=== PATIENT | male | born 1940 | race Caucasian/White ===

== ENCOUNTER 2019-12-15 16:08 | Inpatient (IN) ==
[2019-12-15 17:31] LABS: Hematocrit (blood only) 31.3 % (42-52); Hemoglobin 10.8 g/dL (14.0-18.0); Immature Granulocytes # (auto) 0.02 K/uL (0.00-0.02); Immature Granulocytes % (auto) 0.3 %; Lymphocytes # (auto) 0.72 K/uL (1.2-3.4); Lymphocytes % (auto) 9.3 %; Mean Corpuscular Hgb Conc 34.5 g/dL (32-36); Mean Corpuscular Volume 92.6 fL (80-100); Mean Platelet Volume 11.2 fL (7.4-10.4); Monocytes # (auto) 0.51 K/uL (0.11-0.59); Monocytes % (auto) 6.6 %; Neutrophils # (auto) 6.48 K/uL (1.4-6.5); Neutrophils % (auto) 83.8 %; Platelet Count 155 K/uL (130-400); RDW Coefficient of Variation 14.9 % (11.5-14.5); RDW Standard Deviation 50.4 fL (36.4-46.3); Red Blood Count 3.38 M/uL (4.7-6.1); White Blood Count 7.73 K/uL (4.8-10.8)
[2019-12-15 18:07] LABS: Alanine Aminotransferase 33 U/L (12-78); Albumin Globulin Ratio 0.5 (0.9-2); Albumin Level 2.5 gm/dl (3.4-5.0); Alkaline Phosphatase 52 U/L (45-117); BUN Creatinine Ratio 11.8 (10-20); Bilirubin,Total 0.3 mg/dl (0.2-1); Blood Urea Nitrogen 108 mg/dl (7-18); C Reactive Protein 8.28 mg/dl (0-0.29); Calcium 7.4 mg/dl (8.5-10.1); Carbon Dioxide 20 mmol/L (21-32); Chloride 102 mmol/L (98-107); Creatine Kinase MB < 1.0 ng/ml (0.5-3.6); Creatinine Clr Calc Pharmacy 6.8 ml/min; Est GFR (African American) 5.7; Est GFR (Non-African American) 4.9; Ferritin 1311.5 ng/ml (8-388); Globulin 4.7 gm/dl (2.5-4.0); Glucose 138 mg/dl (70-99); Total Protein 7.2 gm/dl (6.4-8.2); Troponin I 0.015 ng/ml (0-0.045)
[2019-12-15 18:09] LABS: Partial Thromboplastin Ratio 1.8; Prothrombin Time 29.7 Seconds (9.0-12.0)
[2019-12-15 18:13] LABS: Potassium 3.5 mmol/L (3.5-5.1); Sodium 138 mmol/L (136-145)
[2019-12-15 18:16] LABS: Partial Thromboplastin Time 50.1 Seconds (21.0-31.0)
[2019-12-15 18:22] LABS: Aspartate Aminotransferase 35 U/L (15-37); Creatine Kinase 55 U/L (39-308); Magnesium 2.3 mg/dl (1.8-2.4)
[2019-12-15] MEDS ORDERED: CEFEPIME 2,000 MG/20 ML VIAL IV STA (18:33)
[2019-12-15] MEDS ORDERED: DEXAMETHASONE SOD INJ 10 MG/ML VIAL IV ONE (18:33)
[2019-12-15] MEDS ORDERED: ACETAMINOPHEN 1,000 MG/100 ML VIAL IV STA (18:33)
--- NOTE | 2019-12-15 18:59 | XRay Report ---
XR chest 1V portable HISTORY: SEPSIS COMPARISON: None. FINDINGS: There are scattered peripheral hazy airspace opacities seen within the lungs. This is best within the mid to lower lung zones. This is consistent with a pneumonia. The heart is mildly enlarged . No pleural effusions. No pneumothorax. IMPRESSION: Scattered peripheral airspace opacities consistent with pneumonia. This is likely due to the patient' s known coronavirus. ACT 112: Negative or not required by law. Electronically signed by: Girish Coronado M.D. 12/15/2019 6:58 PM
--- NOTE | 2019-12-15 18:59 | Emergency Department Note ---
History of Present Illness General Chief complaint: Shortness of Breath/Dyspnea Stated complaint: SOB, COVID + Time Seen by Provider: 12/15/19 16:43 Source: patient, family (daughter [phone]), EMS, RN notes reviewed and old records reviewed Mode of arrival: EMS Limitations: no limitations History of Present Illness Provider complaint: hypoxia, fever Onset (ago): week(s) 2 Location: chest Severity: moderate Current Pain Intensity: 0 Relieved By: + immobilization Exacerbated By: + movement Associated symptoms: + fever/chills, + loss of appetite, + shortness of breath and + weakness; no confusion, no chest pain, no headaches and no nausea/vomiting Treatments prior to arrival: other (dialysis) This is a 79-year-old male who had a recent complicated stay at [facility] after being diagnosed with coronavirus. The patient receives dialysis Friday. He was sent to dialysis today to [facility]. At dialysis the patient complained of feeling weak and being hypoxic. He has been on 6 L of oxygen since his Covid diagnosis. Upon arrival to the emergency department the patient is febrile and is requiring more oxygen at 6.5 L but otherwise has no complaints. He did not receive anything for the fever prior to coming to the emergency department. He reports movement makes his weakness much worse however immobilization and rest makes it better. Home Medications Home Medications Medication Instructions Recorded Confirmed Type albuterol sulfate 2 puff INHALATION Q4H PRN 12/15/19 12/15/19 History albuterol sulfate 2.5 mg INHALATION Q4H PRN 12/15/19 12/15/19 History aspirin 81 mg PO DAILY 12/15/19 12/15/19 History atorvastatin 80 mg PO QPM 12/15/19 12/15/19 History calcium acetate(phosphat bind) 667 mg PO TID 12/15/19 12/15/19 History clopidogrel 75 mg PO DAILY 12/15/19 12/15/19 History dexamethasone 6 mg PO DAILY 12/15/19 12/15/19 History ergocalciferol (vitamin D2) 50,000 unit PO MONTHLY 12/15/19 12/15/19 History famotidine 40 mg PO HS 12/15/19 12/15/19 History finasteride 5 mg PO DAILY 12/15/19 12/15/19 History fluticasone furoate-vilanterol 1 inh INHALATION DAILY 12/15/19 12/15/19 History [Breo Ellipta] icosapent ethyl [Vascepa] 2 g PO BID 12/15/19 12/15/19 History insulin aspart U-100 [Novolog 15 unit SUBCUT AC 12/15/19 12/15/19 History Flexpen U-100 Insulin] insulin glargine [Lantus Solostar 50 unit SUBCUT QDL 12/15/19 12/15/19 History U-100 Insulin] metoprolol succinate 25 mg PO DAILY 12/15/19 12/15/19 History nitroglycerin [Nitrostat] 0.4 mg SUBLINGUAL UD PRN 12/15/19 12/15/19 History olanzapine 2.5 mg PO DAILY 12/15/19 12/15/19 History tiotropium bromide [Spiriva with 1 cap INHALATION DAILY 12/15/19 12/15/19 History HandiHaler] torsemide 100 mg PO DAILY 12/15/19 12/15/19 History warfarin [Jantoven] 2.5 mg PO UD 12/15/19 12/15/19 History Allergies Allergy/AdvReac Type Severity Reaction Status Date / Time Unable to Assess Allergy Unverified 12/15/19 20:07 Past Med/Surg History Medical History AAA (abdominal aortic aneurysm) Anemia of chronic disease Aortic valve regurgitation Arteriovenous fistula for hemodialysis in place, primary Atherosclerotic heart disease of [place] coronary artery without angina pectoris BPH (benign prostatic hyperplasia) Calculus of kidney Chronic anticoagulation COPD (chronic obstructive pulmonary disease) Critical lower limb ischemia ESRD (end stage renal disease) on dialysis Essential hypertension GERD without esophagitis Grade I diastolic dysfunction History of community acquired pneumonia History of OK (myocardial infarction) History of tobacco abuse Mixed dyslipidemia Occlusion of femoral-popliteal bypass graft Peripheral arterial disease Type 2 diabetes mellitus Surgical History History of cardiac catheterization S/P femoral-popliteal bypass surgery Left - 2011. 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 Required: No Beliefs That Will Affect Care: None Current Living Situation: Alone Other Information That Helps Us Care for You: No Feels Safe at Home: Yes Assistive Devices: Oxygen - Continuous Review of Systems A total of 10 systems reviewed and were otherwise negative Physical Exam Vital Signs Vital Signs - 24 hr 12/15/19 16:18 12/15/19 16:23 12/15/19 16:56 Temperature 38.7 C H Temperature Source Oral Pulse Rate 100 H Pulse Rate [Apical] 100 H Respiratory Rate 24 26 H Respiratory Effort / Characteristics Labored Blood Pressure 176/84 H Blood Pressure [Right Arm] 160/74 H Blood Pressure Mean 114 Blood Pressure Mean [Right Arm] 102 Pulse Oximetry 99 100 Oxygen Delivery Method Nasal Cannula Nasal Cannula Nasal Cannula Oxygen Flow Rate 6 6 6 Sepsis Recent Fever Within 48 Hours Yes Sepsis New/Unexplained Change in Mental Status N/A Sepsis Action Taken by Nursing Physician Notified 12/15/19 17:05 12/15/19 17:31 12/15/19 18:52 Temperature Temperature Source Pulse Rate Pulse Rate [Apical] 98 H Respiratory Rate Respiratory Effort / Characteristics Short of Breath Blood Pressure Blood Pressure [Right Arm] 181/72 H Blood Pressure Mean Blood Pressure Mean [Right Arm] 108 Pulse Oximetry 98 Oxygen Delivery Method Nasal Cannula Nasal Cannula Nasal Cannula Oxygen Flow Rate 6 6 6 Sepsis Recent Fever Within 48 Hours Sepsis New/Unexplained Change in Mental Status Sepsis Action Taken by Nursing 12/15/19 18:53 Temperature 37.8 C H Temperature Source Oral Pulse Rate Pulse Rate [Apical] 97 H Respiratory Rate 26 H Respiratory Effort / Characteristics Blood Pressure Blood Pressure [Right Arm] 187/78 H Blood Pressure Mean Blood Pressure Mean [Right Arm] 114 Pulse Oximetry 94 Oxygen Delivery Method Nasal Cannula Oxygen Flow Rate 6 Sepsis Recent Fever Within 48 Hours Sepsis New/Unexplained Change in Mental Status Sepsis Action Taken by Nursing VITAL SIGNS - Vital signs and nursing notes were reviewed. GENERAL - 79-year-old male appearing ill, stated age who is in no acute distress. Communicates well with provider and answers questions appropriately. SKIN - Without rashes. HEAD - NC/AT. EYES - PERRL with EOMI bilaterally. Sclera anicteric. Palpebral conjunctiva pink and moist with no injection noted. EARS - No deformities of external structures noted on gross examination jeffrey aterally. No pain elicited with palpation of the tragus bilaterally. External auditory canals without discharge or otorrhea. Tympanic membranes pearly hartman without retraction or bulging. No fluid or purulent material visualized behind the TM. Handle of malleus, umbo, cone of light, pars tensa/flaccid all easily visualized. NOSE - Midline and without cyanosis. No epistaxis or purulent drainage noted. Septum midline without deviation or septal hematoma noted. MOUTH/OROPHARYNX - Without perioral cyanosis. Buccal mucosa pink and moist and without leukoplakia. Tongue midline with equal elevation of palate bilaterally. No tonsillar hypertrophy, erythema, or exudates noted. dentition noted. NECK - Neck with FROM. Supple to palpation. lymphadenopathy noted. No nuchal rigidity. LUNGS - Chest wall symmetric without accessory muscle use, intercostals retractions, or central cyanosis. Normal vesicular breath sounds CTA B/L. No wheezes, rales, or rhonchi appreciated. CARDIAC - RRR with S1/S2. No murmur, rubs, or gallops appreciated. ABDOMEN - Abdominal contour without pulsations or visible masses. BS normoactive all four quadrants. No tenderness, palpable masses, hepatosplenomegaly, or ascites noted. EXTREMITIES - No clubbing or peripheral cyanosis. No pretibial edema present. +3/5 radial, posterior tibial, and dorsalis pedis pulses palpated throughout. +5/5 strength noted in UE/LE bilaterally. NEUROLOGIC - Cranial nerves II through XII grossly intact. Sensory intact to light touch throughout. Patellar reflexes +2/4. PSYCH - A&Ox3 and cooperates fully with examiner. Pt is very pleasant and interacts well with examiner. Course Administered Medications Discontinued Medications Albuterol (Albuterol Hfa 8 Gm Inhaler) 1 puffs INH QIDR [facility] Stop: 01/15/20 14:59 Last Admin: 12/16/19 19:27 Dose: 1 puffs Documented by: [id number] Admin: 12/16/19 15:34 Dose: 1 puffs Documented by: [id number] Aspirin (Aspirin 81 Mg Ectab) 81 mg PO DAILY MICAH Stop: 01/15/20 08:59 Last Admin: 12/16/19 10:07 Dose: 81 mg Documented by: [id number] Atorvastatin Calcium (Atorvastatin 40 Mg Tab) 80 mg PO QPM MICAH Stop: 01/15/20 00:29 Last Admin: 12/16/19 02:53 Dose: Not Given Documented by: [id number] Calcium Acetate (Calcium Acetate 667 Mg Cap/Tab) 667 mg PO TID MICAH Stop: 01/15/20 00:29 Last Admin: 12/16/19 14:28 Dose: 667 mg Documented by: [id number] Admin: 12/16/19 10:06 Dose: 667 mg Documented by: [id number] Admin: 12/16/19 02:53 Dose: Not Given Documented by: [id number] Clopidogrel Bisulfate (Clopidogrel Bisulfate 75 Mg Tab) 75 mg PO DAILY MICAH Stop: 01/15/20 08:59 Last Admin: 12/16/19 10:07 Dose: 75 mg Documented by: [id number] Dexamethasone (Dexamethasone Sod Inj 10 Mg/Ml Vial) 6 mg IV NOW ONE Stop: 12/15/19 18:34 Last Admin: 12/15/19 18:54 Dose: 6 mg Documented by: [id number] Dexamethasone (Dexamethasone 4 Mg Tab) 6 mg PO DAILY MICAH Stop: 12/21/19 08:59 Last Admin: 12/16/19 10:07 Dose: 6 mg Documented by: [id number] Famotidine (Famotidine 40 Mg Tablet) 40 mg PO HS MICAH Stop: 01/15/20 00:29 Last Admin: 12/16/19 02:53 Dose: Not Given Documented by: [id number] Finasteride (Finasteride 5 Mg Tab) 5 mg PO DAILY MICAH Stop: 01/15/20 08:59 Last Admin: 12/16/19 10:08 Dose: 5 mg Documented by: [id number] Fluticasone/Vilanterol (Fluticasone/Vilanterol 100/25mcg 14 Puffs/Inhaler) 1 puffs INH DAILY MICAH Stop: 01/15/20 08:59 Last Admin: 12/16/19 10:06 Dose: 1 puffs Documented by: [id number] Acetaminophen (Ofirmev) 1,000 mg in 100 mls @ 400 mls/hr IV NOW STA Stop: 12/15/19 18:47 Last Infusion: 12/15/19 19:10 Dose: 0 mls/hr Documented by: [id number] Admin: 12/15/19 18:55 Dose: 400 mls/hr Documented by: [id number] Cefepime HCl (Maxipime) 2,000 mg in 20 mls @ 5 mls/min IV NOW STA; Protocol Stop: 12/15/19 18:36 Last Admin: 12/15/19 18:54 Dose: 5 mls/min Documented by: [id number] Doxycycline Hyclate 100 mg/ (Dextrose) 110 mls @ 50 mls/hr IV Q12H [facility] Stop: 12/23/19 01:59 Last Infusion: 12/16/19 16:52 Dose: 0 mls/hr Documented by: [id number] Admin: 12/16/19 14:28 Dose: 50 mls/hr Documented by: [id number] Infusion: 12/16/19 04:57 Dose: 0 mls/hr Documented by: [id number] Admin: 12/16/19 02:53 Dose: 50 mls/hr Documented by: [id number] Cefepime HCl 1,000 mg/ Syringe 11.3 mls @ 5.5 mls/min IV TODAY@2000 MICAH; Protocol Stop: 12/23/19 19:59 Last Admin: 12/16/19 20:46 Dose: 5.5 mls/min Documented by: [id number] Phytonadione 10 mg/ Sodium (Chloride) 51 mls @ 102 mls/hr IV ONE ONE Stop: 12/16/19 21:14 Last Infusion: 12/16/19 21:16 Dose: 0 mls/hr Documented by: [id number] Admin: 12/16/19 20:46 Dose: 102 mls/hr Documented by: [id number] Insulin Aspart (Insulin Aspart 100 Units/Ml 3 Ml Pen) 0 units SC ACHS [facility] Stop: 01/15/20 10:29 Last Admin: 12/16/19 16:40 Dose: 1 units Documented by: [id number] Cosigned by: [id number] Admin: 12/16/19 12:18 Dose: Not Given Documented by: [id number] Admin: 12/16/19 11:29 Dose: 22 units Documented by: [id number] Cosigned by: [id number] Insulin Glargine (Insulin Glargine Solostar 100 Units/Ml 3 Ml Pen) 15 units SC BID [facility] Stop: 01/15/20 08:59 Last Admin: 12/16/19 10:23 Dose: Not Given Documented by: [id number] Insulin Glargine (Insulin Glargine Solostar 100 Units/Ml 3 Ml Pen) 50 units SC DAILY@1200 [facility] Stop: 01/15/20 10:14 Last Admin: 12/16/19 11:29 Dose: 50 units Documented by: [id number] Cosigned by: [id number] Ipratropium [place] (Ipratropium [place] Hfa Inhaler) 1 puffs INH QIDR [facility] Stop: 01/15/20 14:59 Last Admin: 12/16/19 19:27 Dose: 1 puffs Documented by: [id number] Admin: 12/16/19 15:34 Dose: 1 puffs Documented by: [id number] Metoprolol Succinate (Metoprolol Succ 25mg Ext Rel Tab) 25 mg PO DAILY MICAH Stop: 01/15/20 08:59 Last Admin: 12/16/19 10:08 Dose: 25 mg Documented by: [id number] Miscellaneous (Ergocalciferol - Order Awaiting Action) 1 ea N/A QS [facility] Stop: 01/15/20 15:59 Last Admin: 12/16/19 15:27 Dose: Not Given Documented by: [id number] Miscellaneous (Icosapent Ethyl [Vascepa]: Order Awaiting Action) 1 ea N/A QS [facility] Stop: 01/15/20 07:59 Last Admin: 12/16/19 15:27 Dose: Not Given Documented by: [id number] Admin: 12/16/19 07:58 Dose: Not Given Documented by: [id number] Olanzapine (Olanzapine 2.5 Mg Tab) 2.5 mg PO DAILY [facility] Stop: 01/15/20 08:59 Last Admin: 12/16/19 10:08 Dose: 2.5 mg Documented by: [id number] Torsemide (Torsemide 100 Mg Tab) 100 mg PO DAILY [facility] Stop: 01/15/20 08:59 Last Admin: 12/16/19 10:07 Dose: 100 mg Documented by: [id number] Umeclidinium [place] (Umeclidinium [place] 62.5mcg/Blister 7 Puffs/Inhaler) 1 puffs INH DAILY [facility] Stop: 01/15/20 08:59 Last Admin: 12/16/19 10:06 Dose: 1 puffs Documented by: [id number] Warfarin Sodium (Warfarin Sod 5 Mg Tab) 5 mg PO TuTh@1600 [facility] Stop: 01/15/20 15:59 Last Admin: 12/16/19 16:39 Dose: 5 mg Documented by: [id number] Critical Care Time I have personally spent greater than 30 minutes of critical care time in the direct management of this patient. This includes bedside care, interpretation of diagnostic studies, and testing, discussion with consultants, patient, and family members, and other required patient management activities. This 30 minutes is in excess of all separately billable procedures. Medical Decision Making Differential Diagnosis Viral syndrome, otitis, pharyngitis, pneumonia, influenza, meningitis, urinary tract infection, sepsis, bacteremia, as well as other pathologies. Medical Records Attestation: I reviewed the patient's medical records. Home Medications Current Medication List: was personally reviewed by me Laboratory Data Attestation: I reviewed the patient's lab results. Result diagrams: 12/16/19 20:48 12/16/19 06:26 Lab Results 12/15/19 12/15/19 12/15/19 Range/Units 17:00 17:00 17:17 WBC (4.8-10.8) K/uL RBC (4.7-6.1) M/uL Hgb (14.0-18.0) g/dL Hct (42-52) % MCV (80-100) fL MCH (25-34) pg MCHC (32-36) g/dL RDW Std Deviation (36.4-46.3) fL RDW Coeff of Rain (11.5-14.5) % Plt Count (130-400) K/uL MPV (7.4-10.4) fL Immature Gran % (Auto) % Neut % (Auto) % Lymph % (Auto) % [place] % (Auto) % Eos % (Auto) % Baso % (Auto) % Neut # (Auto) (1.4-6.5) K/uL Lymph # (Auto) (1.2-3.4) K/uL [place] # (Auto) (0.11-0.59) K/uL Eos # (Auto) (0-0.5) K/uL Baso # (Auto) (0-0.2) K/uL Immature Gran # (Auto) (0.00-0.02) K/uL ESR 45 H (0-14) mm/hr PT (9.0-12.0) Seconds INR (0.9-1.1) APTT (21.0-31.0) Seconds PTT Ratio Sodium (136-145) mmol/L Potassium (3.5-5.1) mmol/L Chloride (98-107) mmol/L Carbon Dioxide (21-32) mmol/L Anion Gap (3-11) BUN (7-18) mg/dl Creatinine (0.6-1.4) mg/dl Est Cr Clr Drug Dosing ml/min Est GFR ( Amer) Est GFR (Non-Af Amer) BUN/Creatinine Ratio (10-20) Glucose (70-99) mg/dl Lactate (0.4-2.0) mmol/L Calcium (8.5-10.1) mg/dl Magnesium (1.8-2.4) mg/dl Ferritin (8-388) ng/ml Total Bilirubin (0.2-1) mg/dl AST (15-37) U/L ALT (12-78) U/L Alkaline Phosphatase (45-117) U/L Total Creatine Kinase (39-308) U/L CK-MB (CK-2) (0.5-3.6) ng/ml Troponin I (0-0.045) ng/ml C-Reactive Protein (0-0.29) mg/dl Total Protein (6.4-8.2) gm/dl Albumin (3.4-5.0) gm/dl Globulin (2.5-4.0) gm/dl Albumin/Globulin Ratio (0.9-2) Procalcitonin (0-0.5) ng/ml COVID-19 Eval Order Covid19 Done at [facility] COVID-19 PCR POSITIVE A* (Negative) 12/15/19 12/15/19 12/15/19 Range/Units 17:17 17:17 17:17 WBC 7.73 (4.8-10.8) K/uL RBC 3.38 L (4.7-6.1) M/uL Hgb 10.8 L (14.0-18.0) g/dL Hct 31.3 L (42-52) % MCV 92.6 (80-100) fL MCH 32.0 (25-34) pg MCHC 34.5 (32-36) g/dL RDW Std Deviation 50.4 H (36.4-46.3) fL RDW Coeff of Rain 14.9 H (11.5-14.5) % Plt Count 155 (130-400) K/uL MPV 11.2 H (7.4-10.4) fL Immature Gran % (Auto) 0.3 % Neut % (Auto) 83.8 % Lymph % (Auto) 9.3 % [place] % (Auto) 6.6 % Eos % (Auto) 0.0 % Baso % (Auto) 0.0 % Neut # (Auto) 6.48 (1.4-6.5) K/uL Lymph # (Auto) 0.72 L (1.2-3.4) K/uL [place] # (Auto) 0.51 (0.11-0.59) K/uL Eos # (Auto) 0.00 (0-0.5) K/uL Baso # (Auto) 0.00 (0-0.2) K/uL Immature Gran # (Auto) 0.02 (0.00-0.02) K/uL ESR (0-14) mm/hr PT (9.0-12.0) Seconds INR (0.9-1.1) APTT (21.0-31.0) Seconds PTT Ratio Sodium 138 (136-145) mmol/L Potassium 3.5 (3.5-5.1) mmol/L Chloride 102 (98-107) mmol/L Carbon Dioxide 20 L (21-32) mmol/L Anion Gap 17.0 H (3-11) BUN 108 H (7-18) mg/dl Creatinine 9.11 H* (0.6-1.4) mg/dl Est Cr Clr Drug Dosing 6.8 ml/min Est GFR ( Amer) 5.7 Est GFR (Non-Af Amer) 4.9 BUN/Creatinine Ratio 11.8 (10-20) Glucose 138 H (70-99) mg/dl Lactate (0.4-2.0) mmol/L Calcium 7.4 L (8.5-10.1) mg/dl Magnesium 2.3 (1.8-2.4) mg/dl Ferritin 1311.5 H (8-388) ng/ml Total Bilirubin 0.3 (0.2-1) mg/dl AST 35 (15-37) U/L ALT 33 (12-78) U/L Alkaline Phosphatase 52 (45-117) U/L Total Creatine Kinase 55 (39-308) U/L CK-MB (CK-2) < 1.0 (0.5-3.6) ng/ml Troponin I 0.015 (0-0.045) ng/ml C-Reactive Protein 8.28 H (0-0.29) mg/dl Total Protein 7.2 (6.4-8.2) gm/dl Albumin 2.5 L (3.4-5.0) gm/dl Globulin 4.7 H (2.5-4.0) gm/dl Albumin/Globulin Ratio 0.5 L (0.9-2) Procalcitonin 0.75 H (0-0.5) ng/ml COVID-19 Eval Order COVID-19 PCR (Negative) 12/15/19 12/15/19 Range/Units 17:17 17:17 WBC (4.8-10.8) K/uL RBC (4.7-6.1) M/uL Hgb (14.0-18.0) g/dL Hct (42-52) % MCV (80-100) fL MCH (25-34) pg MCHC (32-36) g/dL RDW Std Deviation (36.4-46.3) fL RDW Coeff of Rain (11.5-14.5) % Plt Count (130-400) K/uL MPV (7.4-10.4) fL Immature Gran % (Auto) % Neut % (Auto) % Lymph % (Auto) % [place] % (Auto) % Eos % (Auto) % Baso % (Auto) % Neut # (Auto) (1.4-6.5) K/uL Lymph # (Auto) (1.2-3.4) K/uL [place] # (Auto) (0.11-0.59) K/uL Eos # (Auto) (0-0.5) K/uL Baso # (Auto) (0-0.2) K/uL Immature Gran # (Auto) (0.00-0.02) K/uL ESR (0-14) mm/hr PT 29.7 H (9.0-12.0) Seconds INR 3.0 H (0.9-1.1) APTT 50.1 H* (21.0-31.0) Seconds PTT Ratio 1.8 Sodium (136-145) mmol/L Potassium (3.5-5.1) mmol/L Chloride (98-107) mmol/L Carbon Dioxide (21-32) mmol/L Anion Gap (3-11) BUN (7-18) mg/dl Creatinine (0.6-1.4) mg/dl Est Cr Clr Drug Dosing ml/min Est GFR ( Amer) Est GFR (Non-Af Amer) BUN/Creatinine Ratio (10-20) Glucose (70-99) mg/dl Lactate 0.7 (0.4-2.0) mmol/L Calcium (8.5-10.1) mg/dl Magnesium (1.8-2.4) mg/dl Ferritin (8-388) ng/ml Total Bilirubin (0.2-1) mg/dl AST (15-37) U/L ALT (12-78) U/L Alkaline Phosphatase (45-117) U/L Total Creatine Kinase (39-308) U/L CK-MB (CK-2) (0.5-3.6) ng/ml Troponin I (0-0.045) ng/ml C-Reactive Protein (0-0.29) mg/dl Total Protein (6.4-8.2) gm/dl Albumin (3.4-5.0) gm/dl Globulin (2.5-4.0) gm/dl Albumin/Globulin Ratio (0.9-2) Procalcitonin (0-0.5) ng/ml COVID-19 Eval Order COVID-19 PCR (Negative) Imaging Data Radiologist's Impression: [facility], [id number] Ultrasound Report Patient: MARIA A CARMICHAELAdmit Date: 12/15/19MR#: [id number]: [id number] BLACK LOG RDAcct ID:[id number]: [facility] 1940[facility] Zip[facility] [place], [place] [address]Xis: 79Location: EDSex: MRoom/Bed:Att Phy:Diagnosis: SOB, COVID +Cristal Phy: Paco Tobar D.O.Service Date: 12/15/19Fa Phy:Interpreting Phy: Girish Coronado MDAdmit Phy: Ordering Phy: Gume Chung MD cc: ~ US hemodialysis access CLINICAL HISTORY: Clot in fistula? COMPARISON STUDY: None. FINDINGS: Real-time sonographic imaging of the left upper extremity fistula was performed with direct customer service representative images submitted. No thrombus identified within the fistula. There is a focal area of narrowing near the arterial anastomosis with a peak systolic velocity of 490 cm/s. This is proximal to the stent. IMPRESSION: 1. No thrombus identified within the left upper extremity fistula. 2. Focal area of high-grade stenosis near the arterial anastomosis adjacent to the vascular stent. ACT 112: Negative or not required by law. Electronically signed by: Girish Coronado M.D. 12/15/2019 9:03 PM Dictated: 12/15/192100 [facility], [id number] XRay Report Patient: MARIA A CARMICHAELAdmit Date: 12/15/19MR#: [id number]: [id number] BLACK LOG RDAcct ID:[id number]: Date: 1940[facility] Zip: [place], [place] [address]Fgn: 79Location: EDSex: MRoom/Bed:Att Phy:Diagnosis: SOB, COVID +Cristal Phy: Paco Tobar D.O.Service Date: 12/15/19[facility] Phy:Interpreting Phy: Girish Coronado MDAdmit Phy: Ordering Phy: Gume Chung MD cc: ~ XR chest 1V portable HISTORY: SEPSIS COMPARISON: None. FINDINGS: There are scattered peripheral hazy airspace opacities seen within the lungs. This is best within the mid to lower lung zones. This is consistent with a pneumonia. The heart is mildly enlarged. No pleural effusions. No pneumothorax. IMPRESSION: Scattered peripheral airspace opacities consistent with pneumonia. This is likely due to the patient's known coronavirus. ACT 112: Negative or not required by law. Electronically signed by: Girish Coronado M.D. 12/15/2019 6:58 PM Dictated: 12/15/191855Transcribed: 12/15/191855 ECG Data Attestation: I personally reviewed and interpreted this ECG as follows: Indication: + weakness Rate (beats per minute): 98 Rhythm: + normal sinus ECG [place]: + Normal ECG ST segments: no ST depression and no ST elevation ECG Findings: + Q waves (Inferior) Comparison ECG Date: no prior available MDM Narrative Patient was seen and evaluated as above in room C5. Review was performed of nursing notes and vital signs. I did review pertinent previous visits and patient history. After obtaining a thorough history and physical examination the above work up was performed. This is a 79-year-old male recently diagnosed with coronavirus. He has an elevation in his white blood cell count. He was sent in by on dialysis for increasing hypoxia and fever. Patient is febrile here. He was given Tylenol as well as broad-spectrum antibiotics. He was started on Decadron. He is requiring more oxygen here. I did discuss the case with the hospitalist service. I also did discuss the case with the patient's daughter. An order was placed for continuous cardiac monitoring. The monitor shows a rate of 86 with Normal SInus rhythm. The patient was evaluated during the global COVID-19 pandemic, and that diagno sis was suspected/considered upon their initial presentation. Their evaluation, treatment and testing was consistent with current guidelines for patients who present with complaints or symptoms that may be related to COVID-19. Impression & Plan Hypoxia, Chronic anticoagulation, ESRD (end stage renal disease) on dialysis, Arteriovenous fistula for hemodialysis in place, primary, COVID-19 Discharge Plan Visit Data Chief Complaint: Shortness of Breath/Dyspnea Stated Complaint: SOB, COVID + ED Provider: Gume Chung Discharge Problem: Hypoxia, Chronic anticoagulation, ESRD (end stage renal disease) on dialysis, Arteriovenous fistula for hemodialysis in place, primary, COVID-19 Patient Disposition: Admitted As Inpatient Discharge Instructions Interventions: ED Discharge Assessment Last Done: 12/16/19 06:06
--- NOTE | 2019-12-15 21:04 | Ultrasound Report ---
US hemodialysis access CLINICAL HISTORY: Clot in fistula? COMPARISON STUDY: None. FINDINGS: Real-time sonographic imaging of the left upper extremity fistula was performed with repres entative images submitted. No thrombus identified within the fistula. There is a focal area of narrow ing near the arterial anastomosis with a peak systolic velocity of 490 cm/s. This is proximal to the stent. IMPRESSION: 1. No thrombus identified within the left upper extremity fistula. 2. Focal area of high-grade stenosis near the arterial anastomosis adjacent to the vascular stent. ACT 112: Negative or not required by law. Electronically signed by: Girish Coronado M.D. 12/15/2019 9:03 PM
--- NOTE | 2019-12-15 21:32 | History & Physical Report ---
Date of Service December 15, 2019 Assessment & Plan (1) Acute respiratory failure due to COVID-19: Pneumonia Present on admission for worsening SOB and hypoxia Recently treated for COVID at [facility] and discharged yesterday COVID 19 positive on admission Elevated procalcitonin CXR showed scattered peripheral airspace opacities consistent with pneumonia. This is likely due to the patient's known coronavirus. Received IV Cefepime in the ER, Continue cefepime and Doxy added Will complete the course of Dexamethasone 6 mg daiy x 5 days Continue supplement oxygen If SOB worsening, consider Pulm consult COVID 19 Recently admitted and treated for COVID 19 at [facility] CXR showed scattered peripheral airspace opacities consistent with pneumonia. This is likely due to the patient's known coronavirus. Remdesivir not indicated due to ESRD Continue dexamethasone 6mg Continue oxygen supplement Will monitor Ferretin, ESR and C-reactive protein ESRD Daughter said that HD was terminated 1hr early due to hypoxia HD on MW Nephrology consult Will monitor closely for overload Ischemic LE status post thrombectomy in 2014 Continue Coumadin/aspirin and plavix Stable DM type 2 On Lantus and insulin sliding scale while in patient Continue monitor BS Check Hba1c in am COPD Continue Breo and spiriva Continue oxygen supplement Stable DVT px on Coumadin with INR 3 CODE Status DNR as per pt wishes (Daughter was notified ) (2) COVID-19: History of Present Illness Chief Complaint: SOB Primary Care Provider: Paco Tobar 79 yo Male with past medical history of end-stage renal disease on dialysis, type 2 diabetes, COPD, aortic valve regurgitation, hypertension, PVD, ischemic LE status post thrombectomy in 2014 presented to the ER for evaluation of right shortness of breath during dialysis. History mostly obtained over the phone from his daughter Savannah. Patient was recently admitted for respiratory failure due to COVID 19 and discharged yesterday from [facility]. Remdesivir was not given due to end-stage renal disease. He was discharge on Dexamethasone 6mg to complete an additional 6 more days course. Daughter said patient was discharged yesterday but his breathing was not back to his baseline. He said he had to help the patient to get inside the house because he was very weak and he was having SOB. Daughter said today during dialysis his oxygen saturation dropped and was placed on oxygen supplement. daughter said that she thought that was his normal reaction that usually occurs after dialysis where pt feels very weak and tired. Daughter said patient has been in and out the hospital for the last few months between [facility] and [facility]. In the ER patient was found febrile with Temp above 38C and was placed on 6 L nasal cannula. Currently patient denies any chest pain, palpitation, dizziness, or chills. Allergies Allergy/AdvReac Type Severity Reaction Status Date / Time Unable to Assess Allergy Unverified 12/15/19 20:07 Home Medications Home Medications Medication Instructions Recorded Confirmed Type albuterol sulfate 2 puff INHALATION Q4H PRN 12/15/19 12/15/19 History albuterol sulfate 2.5 mg INHALATION Q4H PRN 12/15/19 12/15/19 History aspirin 81 mg PO DAILY 12/15/19 12/15/19 History atorvastatin 80 mg PO QPM 12/15/19 12/15/19 History calcium acetate(phosphat bind) 667 mg PO TID 12/15/19 12/15/19 History clopidogrel 75 mg PO DAILY 12/15/19 12/15/19 History dexamethasone 6 mg PO DAILY 12/15/19 12/15/19 History ergocalciferol (vitamin D2) 50,000 unit PO MONTHLY 12/15/19 12/15/19 History famotidine 40 mg PO HS 12/15/19 12/15/19 History finasteride 5 mg PO DAILY 12/15/19 12/15/19 History fluticasone furoate-vilanterol 1 inh INHALATION DAILY 12/15/19 12/15/19 History [Breo Ellipta] icosapent ethyl [Vascepa] 2 g PO BID 12/15/19 12/15/19 History insulin aspart U-100 [Novolog 15 unit SUBCUT AC 12/15/19 12/15/19 History Flexpen U-100 Insulin] insulin glargine [Lantus Solostar 50 unit SUBCUT QDL 12/15/19 12/15/19 History U-100 Insulin] metoprolol succinate 25 mg PO DAILY 12/15/19 12/15/19 History nitroglycerin [Nitrostat] 0.4 mg SUBLINGUAL UD PRN 12/15/19 12/15/19 History olanzapine 2.5 mg PO DAILY 12/15/19 12/15/19 History tiotropium bromide [Spiriva with 1 cap INHALATION DAILY 12/15/19 12/15/19 History HandiHaler] torsemide 100 mg PO DAILY 12/15/19 12/15/19 History warfarin [Jantoven] 2.5 mg PO UD 12/15/19 12/15/19 History Past Med/Surg History Medical History (Updated 12/15/19 @ 22:17 by Fidel Horta MD) AAA (abdominal aortic aneurysm) Anemia of chronic disease Aortic valve regurgitation Arteriovenous fistula for hemodialysis in place, primary Atherosclerotic heart disease of [place] coronary artery without angina pectoris BPH (benign prostatic hyperplasia) Calculus of kidney Chronic anticoagulation COPD (chronic obstructive pulmonary disease) Critical lower limb ischemia ESRD (end stage renal disease) on dialysis Essential hypertension GERD without esophagitis Grade I diastolic dysfunction History of community acquired pneumonia History of PA (myocardial infarction) History of tobacco abuse Mixed dyslipidemia Occlusion of femoral-popliteal bypass graft Peripheral arterial disease Type 2 diabetes mellitus Surgical History (Updated 12/15/19 @ 19:26 by Demetria Malave PA-C) History of cardiac catheterization S/P femoral-popliteal bypass surgery Left - 2011. Subsequent angioplasty and thrombectomy of graft 2014, angioplasty, thrombectomy and thrombolysis 2016, angioplasty 2018 Social History (Updated 12/15/19 @ 19:26 by Demetria Malave PA-C) Smoking Status: Former smoker Tobacco Type: Cigarettes Smoking End Date: 2011; Hx Alcohol Use: No Hx Substance Use: No Preferred Language: Frisian Communication Ability: Impaired Noodle Maker Required: No Beliefs That Will Affect Care: None Current Living Situation: Alone Other Information That Helps Us Care for You: No Feels Safe at Home: Yes Assistive Devices: Oxygen - Continuous Review of Systems Review of Systems: All systems reviewed & are unremarkable except as noted in HPI & below Physical Exam Physical Exam: General- No acute distress Head- atraumatic Eyes- PERRL, EOMI, ENT- oropharynx clear Neck- supple, no JVD Lungs- diminished BS, No wheezing Heart- regular rhythm; no murmur Abdomen- normal bowel sounds, soft, nontender Extremities- no calf tenderness Neuro- alert, oriented x 3; PERRL, EOMI; no facial palsy; no dysarthria Skin- warm & dry Results & Data Results & Data ([facility]) Vital Signs (Past 12 Hours) Vital Signs Temp Pulse Pulse Resp BP BP Pulse Ox 12/15/19 20:30 92 H 28 H 116/79 95 12/15/19 20:00 93 H 20 127/71 95 12/15/19 18:53 37.8 C H 97 H 26 H 187/78 H 94 12/15/19 17:31 98 H 181/72 H 98 12/15/19 16:56 100 H 26 H 160/74 H 100 12/15/19 16:18 38.7 C H 100 H 24 176/84 H 99 Diagnostic Findings US hemodialysis access CLINICAL HISTORY: Clot in fistula? COMPARISON STUDY: None. FINDINGS: Real-time sonographic imaging of the left upper extremity fistula was performed with retail representative images submitted. No thrombus identified within the fistula. There is a focal area of narrowing near the arterial anastomosis with a peak systolic velocity of 490 cm/s. This is proximal to the stent. IMPRESSION: 1. No thrombus identified within the left upper extremity fistula. 2. Focal area of high-grade stenosis near the arterial anastomosis adjacent to the vascular stent. ACT 112: Negative or not required by law. Electronically signed by: Girish Coronado M.D. 12/15/2019 9:03 PM Dictated: 12/15/192100 Transcribed: 12/15/192100 XR chest 1V portable HISTORY: SEPSIS COMPARISON: None. FINDINGS: There are scattered peripheral hazy airspace opacities seen within the lungs. This is best within the mid to lower lung zones. This is consistent with a pneumonia. The heart is mildly enlarged. No pleural effusions. No pneumothorax. IMPRESSION: Scattered peripheral airspace opacities consistent with pneumonia. This is likely due to the patient's known coronavirus. ACT 112: Negative or not required by law. Electronically signed by: Girish Coronado M.D. 12/15/2019 6:58 PM Dictated: 12/15/191855 Transcribed: 12/15/191855 Code Status & VTE Plan VTE Prophylaxis Plan VTE Prophylaxis will be ordered: Yes
[2019-12-16] MEDS ORDERED: ATORVASTATIN 40 MG TAB PO SCH (00:30)
[2019-12-16] MEDS ORDERED: FAMOTIDINE 40 MG TABLET PO SCH (00:30)
[2019-12-16] MEDS ORDERED: WARFARIN SOD 2.5 MG TAB PO SCH (00:30)
[2019-12-16] MEDS ORDERED: CARBOHYDRATES FOR HYPOGLYCEMIA PO PRN (01:27)
[2019-12-16] MEDS ORDERED: DEXTROSE 50% 50 ML SYRINGE IV PRN (01:27)
[2019-12-16] MEDS ORDERED: GLUCOSE 10 TABS/TUBE PO PRN (01:27)
[2019-12-16] MEDS ORDERED: GLUCAGON FOR INJ 1 MG VIAL SQ PRN (01:27)
[2019-12-16] MEDS ORDERED: GLUCOSE 40% GEL 15 GM TUBE PO PRN (01:27)
[2019-12-16] MEDS: CALCIUM ACETATE 667 MG CAP/TAB PO SCH ×3 (02:53→14:28)
[2019-12-16] MEDS: DOXYCYCLINE HYCLATE 100 MG in DEXTROSE 5% 100 ML IV SCH ×2 (02:53→14:28)
[2019-12-16 06:41] LABS: Hematocrit (blood only) 28.9 % (42-52); Hemoglobin 9.6 g/dL (14.0-18.0); Mean Corpuscular Hemoglobin 31.4 pg (25-34); Mean Corpuscular Hgb Conc 33.2 g/dL (32-36); Mean Corpuscular Volume 94.4 fL (80-100); Mean Platelet Volume 11.5 fL (7.4-10.4); Platelet Count 158 K/uL (130-400); RDW Coefficient of Variation 15.1 % (11.5-14.5); RDW Standard Deviation 52.4 fL (36.4-46.3); Red Blood Count 3.06 M/uL (4.7-6.1); White Blood Count 7.56 K/uL (4.8-10.8)
[2019-12-16 07:02] LABS: INR 2.6 (0.9-1.1); Prothrombin Time 26.4 Seconds (9.0-12.0)
[2019-12-16 07:26] LABS: C Reactive Protein 12.6 mg/dl (0-0.29); Calcium 7.3 mg/dl (8.5-10.1); Creatinine Clr Calc Pharmacy 6.3 ml/min; Est GFR (African American) 5.2; Est GFR (Non-African American) 4.5; Ferritin 1352.1 ng/ml (8-388); Potassium 4.2 mmol/L (3.5-5.1)
[2019-12-16] MEDS ORDERED: INSULIN ASPART 100 UNITS/ML 3 ML PEN SC SCH (07:30)
[2019-12-16 08:28] LABS: Estimated Average Glucose 171 mg/dl; Hemoglobin A1C 7.6 % (4.5-5.6)
[2019-12-16] MEDS ORDERED: PHARMACY GLYCEMIC MGMT CONSULT PRN (08:52)
[2019-12-16] MEDS ORDERED: INSULIN GLARGINE SOLOSTAR 100 UNITS/ML 3 ML PEN SC SCH ×2 (09:00→10:15)
[2019-12-16] MEDS ORDERED: METOPROLOL SUCC 25MG EXT REL TAB PO SCH (09:00)
[2019-12-16] MEDS ORDERED: ASPIRIN 81 MG ECTAB PO SCH (09:00)
[2019-12-16] MEDS ORDERED: FLUTICASONE/VILANTEROL 100/25MCG 14 PUFFS/INHALER INH SCH (09:00)
[2019-12-16] MEDS ORDERED: dexAMETHasone 4 MG TAB PO SCH (09:00)
[2019-12-16] MEDS ORDERED: CEFEPIME 2,000 MG in SYRINGE 0 ML IV SCH (09:00)
[2019-12-16] MEDS ORDERED: UMECLIDINIUM BROMIDE 62.5MCG/BLISTER 7 PUFFS/INHALER INH SCH (09:00)
[2019-12-16] MEDS ORDERED: FINASTERIDE 5 MG TAB PO SCH (09:00)
[2019-12-16] MEDS ORDERED: CLOPIDOGREL BISULFATE 75 MG TAB PO SCH (09:00)
[2019-12-16] MEDS ORDERED: OLANZAPINE 2.5 MG TAB PO SCH (09:00)
[2019-12-16] MEDS ORDERED: TORSEMIDE 100 MG TAB PO SCH (09:00)
[2019-12-16] MEDS ORDERED: ALBUTEROL HFA 8 GM INHALER INH PRN (09:33)
--- NOTE | 2019-12-16 11:21 | Pharmacy Report ---
Pharmacy Glycemic Short Note 2 - Date of Service December 16, 2019 - Glycemic Short BSG Results (Last 24 hours): 12/15/19 12/16/19 12/16/19 17:17 06:26 06:41 Glucose 138 H 226 H POC Glucose 234 H 12/16/19 07:51 Glucose POC Glucose 215 H OUTPATIENT ANTIDIABETIC REGIMEN: * Lantus 50 units SQ daily at 1200 * Novolog 15 units SQ AC * A1c = 7.6% * However, this result is likely somewhat unreliable in ESRD patients d/t interactions between the A1c analyzing technique and high levels of urea in ESRD, reduced RBC life span, iron deficiency anemia, and EPO administration. HbA1c > 7.5% in ESRD patient may overestimate the extent of hyperglycemia in ESRD patients. ASSESSMENT: * 79yo T2DM male admitted for COVID PNA. * Pharmacy consulted for glycemic control. Pt with moderate-severe hyperglycemia secondary to reduced basal insulin dosing on admission, dexamethasone therapy, infection/stress, and no bolus insulin coverage ordered * Will increase basal insulin up to outpatient dosing of 50 units SQ daily. * Add aggressive bolus insulin coverage parameters for steroid induced hyperglycemia. * May need to titrate basal insulin vs add once daily NPH for steroid induced hyperglycemia. Will re-evaluate and titrate based on BSG trends. PLAN FOR INPATIENT GLYCEMIC CONTROL: * Basal insulin * Lantus 50 units SQ daily @ 1200 per outpatient dosing. * Bolus insulin * NovoLog per scale ACHS or Q6hrs while NPO * Goal Range: Low 110 mg/dL - High 140 mg/dL * Correction Factor: 15 mg/dL/unit * Nutritional / Prandial insulin per carb ratio of 1 unit per 5 grams CHO consumed
[2019-12-16] MEDS: INSULIN ASPART 100 UNITS/ML 3 ML PEN SC SCH ×3 (11:29→16:40)
[2019-12-16] MEDS ORDERED: IPRATROPIUM BROMIDE/ALBUTEROL respimat INH INH PRN (13:42)
--- NOTE | 2019-12-16 15:19 | Consultation Report ---
DATE OF CONSULTATION: 12/16/2019 REASON FOR CONSULT: Dialysis patient admitted with shortness of breath related with COVID-19 infection. HISTORY OF PRESENT ILLNESS: The patient is a 79-year-old male with end-stage renal disease on dialysis Friday, , Friday; type 2 diabetes, COPD, and multiple other medical problems who was discharged from [facility] yesterday because after an admission for COVID-19 he went home, but then he had attempted dialysis as an outpatient, but he was felt to be hypoxic, so dialysis was stopped and patient was sent to the Emergency Department at [facility]. He is currently admitted. He did not get remdesivir because of ESRD. He is on oxygen and has received dexamethasone. Findings are concerning for a more serious COVID infection including very elevated CRP and ferritin. He has also had some issues with his AV fistula in the recent past and was supposed to see the vascular surgeon. HOME MEDICATIONS: List was reviewed in detail and as per the reconciliation list. PAST MEDICAL HISTORY: Extensive and was reviewed from the [facility] and P. PAST SURGICAL HISTORY Fem-pop bypass surgery, AV fistula. SOCIAL HISTORY: Former smoker, no alcohol. He is on oxygen at home, has poor ambulation. and lives with his . REVIEW OF SYSTEMS: Reviewed and unremarkable unless stated otherwise. PHYSICAL EXAMINATION: GENERAL: Elderly white male who is in some respiratory distress. HEENT: Mucous membranes moist. NECK: Supple. No jugular venous distention. CHEST: Bilateral decreased breath sounds, occasional crackles. CARDIOVASCULAR: S1, S2 regular, no murmur. ABDOMEN: Soft, nontender. EXTREMITIES: Shows no edema. NEUROLOGIC: Alert, oriented x3. SKIN: Warm and dry. VITAL SIGNS: Blood pressure is 176/83, temperature 36.3, 95% on 6 liter nasal cannula. LABORATORY TESTS: From this morning was reviewed and shows a BUN of 128, creatinine 9.83. Hemoglobin A1c 7.6. Sodium 137, potassium 4.2. Chest x-ray shows scattered airspace opacities consistent with pneumonia, compatible with COVID-19 pneumonia. ASSESSMENT AND PLAN: A 79-year-old male with endstage renal disease, on hemodialysis Friday, , Friday, now admitted with COVID-19 pneumonia and associated respiratory failure. Endstage renal disease, he will need dialysis today. His BUN and creatinine is quite elevated signifying inadequate dialysis in the recent past. We will do him for 4hrs and try to take 2-3 kilo of fluid off later today. MTDD
[2019-12-16] MEDS: ALBUTEROL HFA 8 GM INHALER INH SCH ×2 (15:34→19:27)
[2019-12-16] MEDS: IPRATROPIUM BROMIDE HFA INHALER INH SCH ×2 (15:34→19:27)
[2019-12-16] MEDS ORDERED: WARFARIN SOD 5 MG TAB PO SCH (16:00)
--- NOTE | 2019-12-16 16:41 | Electrocardiogram Report ---
Test Reason : Blood Pressure : / mmHG Vent. Rate : 098 BPM Atrial Rate : 098 BPM P-R Int : 200 ms QRS Dur : 072 ms QT Int : 316 ms P-R-T Axes : 047 -04 058 degrees QTc Int : 403 ms Poor data quality, interpretation may be adversely affected Normal sinus rhythm Voltage criteria for left ventricular hypertrophy possible Inferior infarct , age undetermined Abnormal ECG No previous ECGs available Confirmed by Bogdan Dale ([id number]) on 12/16/2019 4:40:49 PM Referred By: REFERRED SELF Confirmed By:Juan Antonio Dale
--- NOTE | 2019-12-16 17:11 | Hospitalist Progress Note ---
Date of Service December 16, 2019 Assessment & Plan (1) Acute respiratory failure due to COVID-19: COVID 19 Pneumonia Presents with worsening SOB and hypoxia Had recently been discharged from [facility]. Patient is not on oxygen at baseline as per family CXR:Scattered peripheral airspace opacities consistent with pneumonia. This is likely due to the patient's known coronavirus. Procalcitonin 0.8 Ferritin 1352 CRP 12.6 Not a candidate for remdesivir given end-stage renal disease Continue dexamethasone to complete 10-day course Volume status to be managed through dialysis On cefepime, doxycycline empirically Continue supplemental oxygen as needed Albuterol as needed Consider pulmonology input if clinically deteriorates ESRD HD on //Fri Patient nephrology input Dialysis as per nephrology Monitor volume status PAD Ischemic LE status post thrombectomy in 2014 Continue Coumadin/aspirin and plavix INR therapeutic Monitor INR and adjust Coumadin accordingly DM II HbA1C: 7.6 on 12/16/19 Continue insulin therapy Monitor BGs COPD Continue Home inhalers Albuterol PRN Continue oxygen supplement No signs of exacerbation DVT Px: On Coumadin CODE Status DNR/DNI Disposition PT/OT prior to discharge (2) COVID-19: Admission and Anticipated Discharge Date Admission Date: December 15, 2019 Subjective Patient is seen and examined at bedside Poor historian Slow to respond this morning Has intermittent dry cough Denies any significant dyspnea Plan for hemodialysis today Denies chest pain, abdominal pain, nausea, vomiting States feeling tired Review of Systems Review of Systems: All systems reviewed & are unremarkable except as noted in HPI & below Physical Exam Physical Exam: Physical Exam: Vitals signs as noted above General Appearance:Moderately built and nourished, no apparent distress Head: normocephalic, Atraumatic Eyes: normal inspection, EOMI Neck: supple, Trachea midline Respiratory/Chest: Decreased breath sounds, Basal Crackles Cardiovascular: S1, S2, No murmur Abdomen/GI:Soft, Non tender, Bowel sounds present Extremities/Musculoskelatal:normal inspection, no edema Neurologic/Psych:Alert, awake, grossly no focal neurological deficits Skin: normal color, warm Results & Data Results & Data ([facility]) Vital Signs (Past 12 Hours) Vital Signs Temp Pulse Pulse Pulse Resp BP BP 12/16/19 16:20 77 186/96 H 12/16/19 16:00 67 185/79 H 12/16/19 15:48 65 171/77 H 12/16/19 15:36 36.7 C 60 12/16/19 15:34 66 18 12/16/19 15:29 26 H 12/16/19 11:52 36.3 C L 67 24 176/83 H 12/16/19 07:45 36.2 C L 61 18 176/76 H 12/16/19 06:53 36.3 C L 61 12 173/67 H 12/16/19 06:49 36.3 C L 61 18 173/67 H 12/16/19 06:06 59 L 16 113/51 L Pulse Ox 12/16/19 16:20 12/16/19 16:00 12/16/19 15:48 12/16/19 15:36 12/16/19 15:34 95 12/16/19 15:29 12/16/19 11:52 95 12/16/19 07:45 100 12/16/19 06:53 100 12/16/19 06:49 100 12/16/19 06:06 95 Laboratory Results Short CBC 12/15/19 12/16/19 Range/Units 17:17 06:26 WBC 7.73 7.56 (4.8-10.8) K/uL Hgb 10.8 L 9.6 L (14.0-18.0) g/dL Hct 31.3 L 28.9 L (42-52) % Plt Count 155 158 (130-400) K/uL BMP 12/15/19 12/16/19 17:17 06:26 Sodium 138 137 Potassium 3.5 4.2 D Chloride 102 102 Carbon Dioxide 20 L 19 L BUN 108 H 128 H Creatinine 9.11 H* 9.83 H* D Glucose 138 H 226 H Calcium 7.4 L 7.3 L Cardiac Enzymes 12/15/19 Range/Units 17:17 Total Creatine Kinase 55 (39-308) U/L CK-MB (CK-2) < 1.0 (0.5-3.6) ng/ml Troponin I 0.015 (0-0.045) ng/ml Liver Function 12/15/19 Range/Units 17:17 Total Bilirubin 0.3 (0.2-1) mg/dl AST 35 (15-37) U/L ALT 33 (12-78) U/L Alkaline Phosphatase 52 (45-117) U/L Albumin 2.5 L (3.4-5.0) gm/dl
[2019-12-16] MEDS ORDERED: ALBUT/IPRATROP 3MG/0.5MG NEB 3 ML VIAL NEB PRN (18:13)
[2019-12-16 19:31] VITALS: O2SAT 93
[2019-12-16] MEDS ORDERED: CEFEPIME 1,000 MG in SYRINGE 0 ML IV SCH (20:00)
--- NOTE | 2019-12-16 20:33 | Communication Note ---
Date of Service: December 16, 2019 8:18 PM Notified by RN of uncontrolled bleeding from AV fistula site after withdrawal dialysis catheters. Uncontrolled spurting bleeding despite direct pressure by director regulatory agency. INR in AM 2.6 IV vitamin K administered for Coumadin coagulopathy. Aspirin and Plavix held. 9:25 PM Updated by RN of patient having agonal respiration and bradycardia. CPR not initiated due to DNR status established on admission. Patient subsequently ceased to breathe. Patient pronounced at bedside at 9:30 PM. Patient (Mrs. Yaneth Abdul) updated of developments over the phone. Patient and family request for an autopsy. Will relay events to AM provider.
[2019-12-16] MEDS ORDERED: PHYTONADIONE 10 MG in SODIUM CHLORIDE 0.9% 50 ML IV ONE (20:45)
[2019-12-16 20:56] LABS: Basophils # (auto) 0.01 K/uL (0-0.2); Basophils % (auto) 0.1 %; Hematocrit (blood only) 31.7 % (42-52); Hemoglobin 11.1 g/dL (14.0-18.0); Immature Granulocytes # (auto) 0.08 K/uL (0.00-0.02); Immature Granulocytes % (auto) 0.5 %; Lymphocytes # (auto) 0.56 K/uL (1.2-3.4); Lymphocytes % (auto) 3.4 %; Mean Corpuscular Hemoglobin 32.2 pg (25-34); Mean Corpuscular Volume 91.9 fL (80-100); Mean Platelet Volume 10.9 fL (7.4-10.4); Monocytes # (auto) 0.57 K/uL (0.11-0.59); Monocytes % (auto) 3.5 %; Neutrophils # (auto) 15.27 K/uL (1.4-6.5); Neutrophils % (auto) 92.5 %; Platelet Count 228 K/uL (130-400); RDW Standard Deviation 50.6 fL (36.4-46.3); Red Blood Count 3.45 M/uL (4.7-6.1); White Blood Count 16.49 K/uL (4.8-10.8)
[2019-12-16 21:12] LABS: INR 2.8 (0.9-1.1); Prothrombin Time 27.8 Seconds (9.0-12.0)
--- NOTE | 2019-12-16 21:40 | Death Pronouncement Note ---
Date of Service December 16, 2019 Pronouncement Note Admission Date Admission Date: December 15, 2019 Date and Time of Date of : 12/16/19 Time of : 21:30 Contributing Factors (1) Acute respiratory failure due to COVID-19: (2) COVID-19: Summary Additional details: Discharge summary and electronic certificate to be accomplished by Dr. Britt. Additional Data Confirmation of : no pulse, no respirations, no heart sounds and pupils fixed and dilated Family: contacted Attending/PCP notified?: No Attending physician: Florentin Britt MD Was code activated?: No Autopsy requested?: Yes land leasing examiner notified?: Yes
[2019-12-16 23:15] VITALS: BP 176/52; PULSE 86; TEMP 97.5
[2019-12-17] MEDS ORDERED: INSULIN ASPART 100 UNITS/ML 3 ML PEN SC SCH
--- NOTE | 2019-12-17 07:56 | Discharge Summary ---
Date of Service December 17, 2019 Admission HPI Per Admitting Provider 79 yo Male with past medical history of end-stage renal disease on dialysis, type 2 diabetes, COPD, aortic valve regurgitation, hypertension, PVD, ischemic LE status post thrombectomy in 2014 presented to the ER for evaluation of right shortness of breath during dialysis. History mostly obtained over the phone from his daughter Savannah. Patient was recently admitted for respiratory failure due to COVID 19 and discharged yesterday from [facility]. Remdesivir was not given due to end-stage renal disease. He was discharge on Dexamethasone 6mg to complete an additional 6 more days course. Daughter said patient was discharged yesterday but his breathing was not back to his baseline. He said he had to help the patient to get inside the house because he was very weak and he was having SOB. Daughter said today during dialysis his oxygen saturation dropped and was placed on oxygen supplement. daughter said that she thought that was his normal reaction that usually occurs after dialysis where pt feels very weak and tired. Daughter said patient has been in and out the hospital for the last few months between [facility] and [place]. In the ER patient was found febrile with Temp above 38C and was placed on 6 L nasal cannula. Currently patient denies any chest pain, palpitation, dizziness, or chills. Admission Exam Per Admitting Provider Physical Exam Physical Exam: General- No acute distress Head- atraumatic Eyes- PERRL, EOMI, ENT- oropharynx clear Neck- supple, no JVD Lungs- diminished BS, No wheezing Heart- regular rhythm; no murmur Abdomen- normal bowel sounds, soft, nontender Extremities- no calf tenderness Neuro- alert, oriented x 3; PERRL, EOMI; no facial palsy; no dysarthria Skin- warm & dry Principal Diagnosis Acute respiratory failure COVID 19 Pneumonia ESRD Discharge Data Allergies Allergy/AdvReac Type Severity Reaction Status Date / Time Unable to Assess Allergy Unverified 12/15/19 20:07 Consultations 12/15/19 18:59 ED Decision to Admit Stat 12/16/19 07:00 Consult Nephrology Routine Procedures Performed Scattered peripheral airspace opacities consistent with pneumonia. This is likely due to the patient's known coronavirus. Ordered Studies 12/15/19 18:59 hemodialysis access Routine Hospital Course (1) Acute respiratory failure due to COVID-19: COVID 19 Pneumonia Presents with worsening SOB and hypoxia Had recently been discharged from [facility]. Patient is not on oxygen at baseline as per family CXR:Scattered peripheral airspace opacities consistent with pneumonia. This is likely due to the patient's known coronavirus. Procalcitonin 0.8 Ferritin 1352 CRP 12.6 Not a candidate for remdesivir given end-stage renal disease Continue dexamethasone to complete 10-day course Volume status to be managed through dialysis On cefepime, doxycycline empirically Continue supplemental oxygen as needed Albuterol as needed Consider pulmonology input if clinically deteriorates ESRD HD on Patient nephrology input Dialysis as per nephrology Monitor volume status PAD Ischemic LE status post thrombectomy in 2014 Continue Coumadin/aspirin and plavix INR therapeutic Monitor INR and adjust Coumadin accordingly DM II HbA1C: 7.6 on 12/16/19 Continue insulin therapy Monitor BGs COPD Continue Home inhalers Albuterol PRN Continue oxygen supplement No signs of exacerbation DVT Px: On Coumadin CODE Status DNR/DNI Disposition Patient . Patient could not complete the dialysis as per RN. He was placed on High Flow after the dialysis and his oxygen saturation improved to low 90s. His is DNI/DNR status. Patient's is updated about patient's poor prognosis. Patient's informed that he has not been able to tolerate dialysis lately and he has been hospitalized since many days lately and was recently discharged from [facility]. Night hospitalist was notified by RN that patient had bleeding from AV fistula site despite direct pressure by sweeping compound blender. His INR is therapeutic with coumadin. He received Vit K and his aspirin and plavix were held. His Hb was noted to be 11.1. At about 9:25Pm, patient had agonal respiration and was bradycardic and resuscitation was not attempted due to DNI/DNR status. Patient ceased breathing and at 9:30PM. Patient's family was updated by Night hospitalist. (2) COVID-19: Total Time Total Time Spent Total Time Spent (In Minutes): 25 minutes Discharge Plan Discharge Items Patient Disposition:
[2019-12-17] MEDS ORDERED: WARFARIN SOD 7.5 MG TAB PO SCH (16:00)
== END 2019-12-17 01:30 | disposition expired | DRG 177 ==
LOC: ED 16:08 → SUATTDRO 21:08 → EDINP 21:08 → 2S 12-16 06:06